=== PATIENT | female | born 1960 | race Caucasian/White ===

== ENCOUNTER 2019-06-16 05:45 | Emergency (ER) | payer BC ==
--- NOTE | 2019-06-16 06:16 | ED ---
HPI Chest Pain - HPI Summary HPI Summary: Pt. is a 59 y.o female who presents to the ER for evaluation of chest pressure and dizziness. Pt. notes she has been deeling with dizziness and feeling faint since April 2019. Pt. states she had numerous workups by PCP and was dx with a DVT in right leg and started on Xarelto about 2 weeks ago. Pt. notes dizziness continues. Pt. states she had an MRI brain that was normal. Pt. had CTA 06/11/2019 which she states was positive for bilateral PEs. Records at [place]. Pt. also notes she had a negative echocardiogram. Pt. notes she was also dx with HTN a few months ago and was on Losartan but states it was making her BP too low and worsening her sxs so she stopped it. Pt. otherwise denies past medical hx. Pt. states this morning she felt faint and had mild chest pressure so she had her bring her to the [facility] [place]. Pt. denies SOB, fever, cough, abd. pain. Pt. states she is feeling better since being in the ED and is currently symptoms free. Sxs are moderate in severity. No current modifying factors. - History of Current Complaint Chief Complaint: EDDizziness Time Seen by Provider: 06/16/19 05:57 Hx Obtained From: Patient Pain Intensity: 0 - Allergy/Home Medications Allergies/Adverse Reactions: Allergies Allergy/AdvReac Type Severity Reaction Status Date / Time No Known Allergies Allergy Verified 06/16/19 06:12 Home Medications: Home Medications Xarelto 15 mg(*) 15 mg PO BID 06/16/19 [History Confirmed 06/16/19] PMH/Surg Hx/FS Hx/Imm Hx Previously Healthy: Yes Infectious Disease History: No Infectious Disease History: Denies: Hx Clostridium Difficile, Hx Hepatitis, Hx Human Immunodeficiency Virus (HIV), Hx of Known/Suspected MRSA, Hx Shingles, Hx Tuberculosis, Hx Known/ Suspected VRE, Hx Known/Suspected VRSA, History Other Infectious Disease, Traveled Outside the [place] in Last 30 Days - Family History Known Family History: Positive: Non-Contributory - Social History Occupation: Unemployed Lives: With Family Alcohol Use: None Substance Use Type: Reports: None Smoking Status (MU): Never Smoked Tobacco Have You Smoked in the Last Year: No Review of Systems Constitutional: Negative Negative: Fever, Chills Eyes: Negative ENT: Negative Positive: Chest Pain Respiratory: Negative Negative: Shortness Of Breath, Cough Gastrointestinal: Negative Negative: Abdominal Pain, Vomiting, Diarrhea Genitourinary: Negative Negative: dysuria Musculoskeletal: Negative Skin: Negative Neurological/Mental Status: Negative All Other Systems Reviewed And Are Negative: Yes Physical Exam Triage Information Reviewed: Yes Vital Signs On Initial Exam: Initial Vitals Temp Pulse Resp BP Pulse Ox 98.3 F 102 18 142/106 98 06/16/19 05:46 06/16/19 05:46 06/16/19 05:46 06/16/19 05:46 06/16/19 05:46 Vital Signs Reviewed: Yes Appearance: Positive: Well-Appearing - Pt. sitting up in bed in NAD. Anxious. Skin: Positive: Warm, Dry Head/Face: Positive: Normal Head/Face Inspection Eyes: Positive: Normal, EOMI Neck: Positive: Supple Respiratory/Lung Sounds: Positive: Clear to Auscultation, Breath Sounds Present. Negative: Rales, Rhonchi, Wheezes Cardiovascular: Positive: Normal, RRR Musculoskeletal: Positive: Normal, Strength/ROM Intact, Other - Legs without erythema, edema or pain. Neurological: Positive: Normal, CN Intact II-III Psychiatric: Positive: Affect/Mood Appropriate Procedures - Sedation Patient Received Moderate/Deep Sedation with Procedure: No Diagnostics - Vital Signs Vital Signs Temp Pulse Resp BP Pulse Ox 06/16/19 06:08 88 172/104 97 06/16/19 06:04 90 180/103 97 06/16/19 06:03 89 97 06/16/19 05:46 98.3 F 102 18 142/106 98 - Laboratory Result Diagrams: 06/16/19 06:40 06/16/19 06:40 Lab Statement: Any lab studies that have been ordered have been reviewed, and results considered in the medical decision making process. Chest Pain Course/Dx - Course Course Of Treatment: Pt. with presenting after mild chest pressure. Afebrile with stable VS. O2 saturation 96-98% on RA. No c/o SOB. ECG done at 0625 shows a sinus rhythm of 84bpm, normal axis, no ST elevation or depression. CXR negative for acute changes per radiology. Labs unremarkable including troponin x 2. HEART score 2 putting pt. at low risk for cardiac event. Echo and CTA images obtained from [place]. Pt. ambulatory and O2 remained 98% on RA. Did have positive orthostatic and IV fluids given. HEART Case discussed with Dr Dickey who agrees with dc home. Results discussed with pt. and she is comfortable going home. To call pcp tomorrow for close f.u. To continue xarelto. WIll return to ER if sxs change or worsen. Pt. understands and agrees with plan. - Chest Pain Differential Diagnosis/HQI/PQRI: Acute [place], ACS, Angina, Chest Wall, GI Disease, Lower Respiratory Infection, Pulmonary Embolism - Diagnoses Provider Diagnoses: Pulmonary emboli, Elevated TSH Discharge ED - Sign-Out/Discharge Documenting (check all that apply): Patient Departure - Discharge Plan Condition: Improved Disposition: HOME Patient Education Materials: Pulmonary Embolism (ED) Referrals: Key Luis MD [Primary Care Provider] - Additional Instructions: Please call your PCP on Monday for a close follow up appointment Continue Xarelto as directed Return to ER for increased pain, difficulty breathing, new/worsening symptoms, or if concerned - Billing Disposition and Condition Condition: IMPROVED Disposition: Home - Attestation Statements Provider Attestation: I was available for consult. This patient was seen by the NIR. The patient was not presented to, seen by, or examined by me. Ruddy Dickey MD
[2019-06-16 07:01] LABS: ABS Basophils 0.1 10^3/ul (0-0.2); ABS Eosinophils 0.1 10^3/ul (0-0.6); ABS Lymphocytes 1.1 10^3/ul (1.0-4.8); ABS Monocytes 0.7 10^3/ul (0-0.8); ABS Neutrophils 4.8 10^3/ul (1.5-7.7); Eosinophil % 1.1 %; Hematocrit 41 % (35-47); Hemoglobin 14.2 g/dL (12.0-16.0); Lymphocyte % 16.9 %; Mean Corpuscular HGB Conc 35 g/dL (31-36); Mean Corpuscular Hemoglobin 32 pg (27-31); Mean Corpuscular Volume 90 fL (80-97); Nucleated Red Blood Cells % 0.1; Platelet Count 334 10^3/uL (150-450); Red Blood Count 4.52 10^6 /uL (3.70-4.87); Red Cell Distribution Width 12 % (10-15); White Blood Count 6.7 10^3/uL (3.5-10.8)
[2019-06-16 07:08] LABS: Activated Partial Thrombo Time 36.7 seconds (26.0-38.0); INR 1.31 (0.82-1.09)
[2019-06-16 07:18] LABS: Albumin 3.8 g/dL (3.2-5.2); Albumin/Globulin Ratio 1.1 (1-3); BUN/Creatinine Ratio 14.8 (8-20); Calcium 9.6 mg/dL (8.6-10.3); EGFR Non-African American 65.3 (>60); Globulin 3.4 g/dL (2-4); Magnesium 1.9 mg/dL (1.9-2.7); Total Bilirubin 0.6 mg/dL (0.2-1.0); Total Protein 7.2 g/dL (6.4-8.9)
[2019-06-16 08:11] LABS: TSH (Thyroid Stimulating Horm) 8.78 mcIU/mL (0.34-5.60)
[2019-06-16] MEDS ORDERED: NS 0.9% 1000 ML** 1,000 ML IV ONE (08:13)
[2019-06-16 08:58] LABS: Free T4 0.9 ng/dL (0.61-1.12)
[2019-06-16 10:19] VITALS: BP 146/86
== END 2019-06-16 10:05 | disposition home or self-care (01) ==
LOC: ED 05:45
DX: I26.99 Other pulmonary embolism without acute cor pulmonale (principal); R94.6 Abnormal results of thyroid function studies; R07.9 Chest pain, unspecified; Z79.01 Long term (current) use of anticoagulants; Z86.718 Personal history of other venous thrombosis and embolism
CPT/HCPCS: 36415; 71045; 80053; 83605; 83735; 84439; 84443; 84481; 84484; 85025; 85610; 85730; 93005; 99283

== ENCOUNTER 2019-06-30 08:43 | Emergency (ER) | payer BC ==
[2019-06-30] MEDS ORDERED: Meclizine TAB* 12.5 MG PO ONE (09:08)
[2019-06-30 09:45] LABS: ABS Monocytes 0.5 10^3/ul (0-0.8); ABS Neutrophils 3.6 10^3/ul (1.5-7.7); Eosinophil % 0.5 %; Hematocrit 43 % (35-47); Hemoglobin 14.9 g/dL (12.0-16.0); Lymphocyte % 19.4 %; Mean Corpuscular HGB Conc 35 g/dL (31-36); Mean Corpuscular Hemoglobin 32 pg (27-31); Mean Corpuscular Volume 91 fL (80-97); Platelet Count 219 10^3/uL (150-450); Red Blood Count 4.72 10^6 /uL (3.70-4.87); Red Cell Distribution Width 13 % (10-15); White Blood Count 5.2 10^3/uL (3.5-10.8)
[2019-06-30 10:02] LABS: Albumin 4.2 g/dL (3.2-5.2); Albumin/Globulin Ratio 1.4 (1-3); BUN/Creatinine Ratio 11.8 (8-20); Calcium 9.6 mg/dL (8.6-10.3); EGFR African American 74.2 (>60); EGFR Non-African American 61.3 (>60); Magnesium 1.8 mg/dL (1.9-2.7); Potassium 3.9 mmol/L (3.5-5.0); Total Bilirubin 0.6 mg/dL (0.2-1.0); Total Protein 7.2 g/dL (6.4-8.9)
[2019-06-30 10:30] LABS: TSH (Thyroid Stimulating Horm) 3.5 mcIU/mL (0.34-5.60)
[2019-06-30 11:09] VITALS: BP 139/84
--- NOTE | 2019-06-30 11:26 | ED ---
Dizziness - HPI Summary HPI Summary: This patient is a 59-year-old female presenting to the ED for concern of dizziness and lightheadedness upon wakening this morning. Patient states she's been dealing with this for over 2 months. She states this started around April. She has had multiple workups through her PCP, Dr. Luis, and was most recently diagnosed with a DVT and bilateral PEs 3 weeks ago. She has been on Xarelto since that time. She also had an MRI due to her persistent dizziness and lightheadedness. She had completed an echocardiogram as well as multiple EKGs and blood work, all of which were normal. She states due to her hypertension when in the clinic or in the emergency room, she was started on 10 mg losartan at bedtime. She states her blood pressure continued to drop so much that she had worsening lightheadedness and dizziness, so she did not want to continue it. Her doctor lowered her dose to 5 mg at bedtime. She states she continues to take her blood pressure at home and has been low readings. She also endorses some intermittent chest pressure to the lower midsternal area which has also been worked up for, most recently 2 weeks ago, with negative troponins. She denies any recent illness including fever, cough, shortness of breath, sweats or chills. Nothing makes the sxs better or worse. Not worse with head movement. She does not believe the dizziness is from the BP as she had these symptoms prior to starting her medications. She believes this to be related to her recent dx of PE's. Denies VICENTE. - History Of Current Complaint Chief Complaint: EDDizziness Stated Complaint: DIZZINESS PER PT Time Seen by Provider: 06/30/19 08:47 Hx Obtained From: Patient Timing: Intermittent Episode Lasting Severity Initially: Severe Severity Currently: Mild Character: Lightheaded, Dizzy Aggravating Factor(s): Nothing Alleviating Factor(s): Nothing Associated Signs And Symptoms: Positive: Nausea. Negative: Vomiting, Diarrhea, Diaphoresis, Unsteady Gait, Visual Changes, Blood In Stool, Inability to Walk - Allergies/Home Medications Allergies/Adverse Reactions: Allergies Allergy/AdvReac Type Severity Reaction Status Date / Time No Known Allergies Allergy Verified 06/30/19 08:51 Home Medications: Home Medications Xarelto 15 mg(*) 15 mg PO BID 06/16/19 [History Confirmed 06/16/19] Meclizine TAB* [Antivert 12.5 TAB*] 25 mg PO TID PRN #20 tab MDD 3 06/30/19 [Rx] Ondansetron ODT TAB* [Zofran 4 MG Odt TAB*] 4 mg PO Q6H PRN #12 tab.odt MDD 4 [Rx] PMH/Surg Hx/FS Hx/Imm Hx Previously Healthy: Yes - Immunization History Hx Pertussis Vaccination: No Immunizations Up to Date: Yes Infectious Disease History: No Infectious Disease History: Denies: Hx Clostridium Difficile, Hx Hepatitis, Hx Human Immunodeficiency Virus (HIV), Hx of Known/Suspected MRSA, Hx Shingles, Hx Tuberculosis, Hx Known/ Suspected VRE, Hx Known/Suspected VRSA, History Other Infectious Disease, Traveled Outside the [place] in Last 30 Days - Family History Known Family History: Positive: Non-Contributory - Social History Occupation: Unemployed Lives: With Family Alcohol Use: None Hx Substance Use: No Substance Use Type: Reports: None Smoking Status (MU): Never Smoked Tobacco Have You Smoked in the Last Year: No Review of Systems Negative: Fever, Chills, Skin Diaphoresis Negative: Palpitations, Chest Pain Negative: Shortness Of Breath, Cough Genitourinary: Negative Positive: no symptoms reported, see HPI Negative: Rash, Bruising Neurological/Mental Status: Other - dizzy, lightheaded All Other Systems Reviewed And Are Negative: No Physical Exam Triage Information Reviewed: Yes Vital Signs On Initial Exam: Initial Vitals Temp Pulse Resp BP Pulse Ox 98.4 F 74 21 152/101 97 06/30/19 08:50 06/30/19 08:50 06/30/19 08:50 06/30/19 08:50 06/30/19 08:50 Vital Signs Reviewed: Yes Appearance: Positive: Well-Appearing, Well-Nourished Skin: Positive: Warm, Skin Color Reflects Adequate Perfusion Head/Face: Positive: Normal Head/Face Inspection Eyes: Positive: EOMI, TOM, Conjunctiva Clear Neck: Positive: Supple, No Lymphadenopathy Respiratory/Lung Sounds: Positive: Clear to Auscultation, Breath Sounds Present Cardiovascular: Positive: RRR, Pulses are Symmetrical in both Upper and Lower Extremities Musculoskeletal: Positive: Strength/ROM Intact Neurological: Positive: Sensory/Motor Intact, Alert, Oriented to Person Place, Time, Speech Normal Psychiatric: Positive: Normal, Affect/Mood Appropriate AVPU Assessment: Alert Procedures - Sedation Patient Received Moderate/Deep Sedation with Procedure: No Diagnostics - Vital Signs Vital Signs Temp Pulse Resp BP Pulse Ox 06/30/19 11:08 97.8 F 64 12 139/84 96 06/30/19 09:35 87 134/94 06/30/19 08:50 98.4 F 74 21 152/101 97 - Laboratory Lab Results: Lab Results 06/30/19 06/30/19 Range/Units 09:32 09:32 WBC 5.2 (3.5-10.8) 10^3/uL RBC 4.72 (3.70-4.87) 10^6 /uL Hgb 14.9 (12.0-16.0) g/dL Hct 43 (35-47) % MCV 91 (80-97) fL MCH 32 H (27-31) pg MCHC 35 (31-36) g/dL RDW 13 (10-15) % Plt Count 219 (150-450) 10^3/uL MPV 9.0 (7.4-10.4) fL Neut % (Auto) 69.8 % Lymph % (Auto) 19.4 % [place]ruff % (Auto) 9.5 % Eos % (Auto) 0.5 % Baso % (Auto) 0.8 % Absolute Neuts (auto) 3.6 (1.5-7.7) 10^3/ul Absolute Lymphs (auto) 1.0 (1.0-4.8) 10^3/ul Absolute Monos (auto) 0.5 (0-0.8) 10^3/ul Absolute Eos (auto) 0.0 (0-0.6) 10^3/ul Absolute Basos (auto) 0.0 (0-0.2) 10^3/ul Absolute Nucleated RBC 0.0 10^3/ul Nucleated RBC % 0.0 Sodium 139 (135-145) mmol/L Potassium 3.9 (3.5-5.0) mmol/L Chloride 104 (101-111) mmol/L Carbon Dioxide 26 (22-32) mmol/L Anion Gap 9 (2-11) mmol/L BUN 11 (6-24) mg/dL Creatinine 0.93 (0.51-0.95) mg/dL Est GFR ( Amer) 74.2 (>60) Est GFR (Non-Af Amer) 61.3 (>60) BUN/Creatinine Ratio 11.8 (8-20) Glucose 135 H (70-100) mg/dL Calcium 9.6 (8.6-10.3) mg/dL Magnesium 1.8 L (1.9-2.7) mg/dL Total Bilirubin 0.60 (0.2-1.0) mg/dL AST 17 (13-39) U/L ALT 26 (7-52) U/L Alkaline Phosphatase 91 (34-104) U/L Troponin I 0.00 (<0.03) ng/mL Total Protein 7.2 (6.4-8.9) g/dL Albumin 4.2 (3.2-5.2) g/dL Globulin 3.0 (2-4) g/dL Albumin/Globulin Ratio 1.4 (1-3) TSH 3.50 (0.34-5.60) mcIU/mL Free T4 1.00 (0.61-1.12) ng/dL Result Diagrams: 06/30/19 09:32 06/30/19 09:32 Lab Statement: Any lab studies that have been ordered have been reviewed, and results considered in the medical decision making process. Dizzy Course/Dx - Course Course Of Treatment: On arrival into the ED, the patient appears well. Nondiaphoretic and nontoxic appearing. An EKG was performed which is sinus rhythm with a rate of 65. Blood pressure 152/101. Patient states this is normal for her when she comes in to the ED or to her PCP office she is a very anxious person. She states she has extreme anxiety over her dizziness and lightheadedness this morning. She states the dizziness was worse this morning upon wakening than it had been in the past. She is never taken a dizziness medication in the past. She does state she has been having low blood pressures at home. Discussed with the patient at length regarding her symptoms. Patient is very anxious. Attempted multiple times to reassure her labs, ekg and previous workup through [facility] and here were all seemingly normal findings. I have encouraged her to f/u with her PCP. She is on approrpiate tx for her PE's and denies SOB. HEART SCORE = low. trop 0.00. Mag slightly low at 1.8. No other acute findings. Negative orthostatics. Pt inproved slightly with meclizine but more concerned over the reason she has been lightheaded. I have encouraged her to keep a record of her BP and only take the medication at night if her BP is over 140's. She will call PCP tomorrow for close f/u. - Diagnoses Differential Diagnosis/HQI/PQRI: Other - dizzy, chest pressure Provider Diagnoses: Lightheadedness - Critical Care Time Critical Care Statement: Critical care time is provided exclusive of any time spent performing procedures. Discharge ED - Sign-Out/Discharge Documenting (check all that apply): Patient Departure - Discharge Plan Condition: Stable Disposition: HOME Prescriptions: Meclizine TAB* [Antivert 12.5 TAB*] 25 mg PO TID PRN #20 tab MDD 3 PRN Reason: Dizziness Ondansetron ODT TAB* [Zofran 4 MG Odt TAB*] 4 mg PO Q6H PRN #12 tab.odt MDD 4 PRN Reason: Nausea Patient Education Materials: Lightheadedness (ED) Referrals: Key Lius MD [Primary Care Provider] - Additional Instructions: Please follow up with PCP as discussed Keep a log of your blood pressures at home - take 3x per day If your blood pressure is under 140, I would recommend not taking your blood pressure medication as it may lower you too much - causing worsening dizziness and lightheadedness - Billing Disposition and Condition Condition: STABLE Disposition: Home
== END 2019-06-30 10:56 | disposition home or self-care (01) ==
LOC: ED 08:43
DX: R42 Dizziness and giddiness (principal); Z79.01 Long term (current) use of anticoagulants; Z79.899 Other long term (current) drug therapy
CPT/HCPCS: 36415; 80053; 83735; 84439; 84443; 84484; 85025; 93005; 99283; A9270-GY